=== PATIENT | male | born 1940 | race Two or more races ===

== ENCOUNTER 2023-03-22 05:26 | Emergency (ER) | payer OTHER ==
[~2023-03-22] VITALS: Ht 172.7 cm; Wt 55.8 kg
[2023-03-22 06:49] LABS: HEMATOCRIT 44.2 % (39.0-48.0); HEMOGLOBIN 15.5 g/dL (13-16.00); MEAN CELL VOLUME 88.8 fL (80.0-100.00); MEAN CORPUSCULAR HEMOGLOBIN 31.1 pg (27.00-32.0); PLATELET COUNT 210 K/uL (150-450); RED BLOOD COUNT 4.97 M/uL (4.00-6.00); RED CELL DISTRIBUTION WIDTH 14.3 % (11.5-14.5)
[2023-03-22 07:08] LABS: ALBUMIN 3.5 gm/dL (3.4-5.0); BILIRUBIN TOTAL 0.62 mg/dL (0.3-1.2); CALCIUM 8.8 mg/dL (8.5-10.1); CREATININE SERUM 0.88 mg/dL (0.70-1.30); GFR 82.7; GLOBULINA 3.7 G/DL (2.4-3.5); POTASSIUM 4.22 mEq/L (3.5-5.1); TOTAL PROTEIN 7.2 gm/dL (6.4-8.2)
[2023-03-22 07:13] LABS: INR 1.05; PARTIAL THROMBOPLASTIN TIME 26.4 SECONDS (22.0-34.0)
== END 2023-03-22 12:55 | disposition home or self-care (01) ==
LOC: ER 05:26
DX: C79.51 Secondary malignant neoplasm of bone (principal); R10.31 Right lower quadrant pain; K56.41 Fecal impaction

== ENCOUNTER 2025-02-12 08:33 | Emergency (ER) | payer OTHER ==
[~2025-02-12] VITALS: Ht 170.2 cm; Wt 49.9 kg
[2025-02-12] MEDS ORDERED: LIDOCAINE HCL 1% 10ML VIAL ONE (08:47)
[2025-02-12] MEDS ORDERED: HYDROGEN PEROXIDE 473 ML BOTTLE TOP ONE (08:47)
[2025-02-12] MEDS ORDERED: BACITRACIN-NEOMYCIN-POLYMYXIN 0.9 GM PACKET TOP ONE (09:41)
[2025-02-12] MEDS ORDERED: KETOROLAC TROMETHAMINE 30 MG VIAL ONE (09:54)
[2025-02-12] MEDS ORDERED: KETOROLAC TROMETHAMINE 30 MG VIAL IM ONE (10:00)
== END 2025-02-12 10:00 | disposition home or self-care (01) ==
LOC: ER 08:33
DX: S01.81XA Laceration without foreign body of other part of head, initial encounter (principal); W19.XXXA Unspecified fall, initial encounter; Y93.89 Activity, other specified; Y92.89 Other specified places as the place of occurrence of the external cause; Y99.8 Other external cause status; T14.8XXA Other injury of unspecified body region, initial encounter; M25.519 Pain in unspecified shoulder
CPT/HCPCS: 13132; 13133; 70450; 70490; 73000; 73030; 96372; 99284; J1885